=== PATIENT | female | born 1985 | race Caucasian/White ===

== ENCOUNTER → 2023-01-14 | Outpatient (CLI) | payer OTHER ==
--- NOTE | 2023-01-14 12:05 | XR ---
EXAMINATION TYPE: XR hand complete RT, XR wrist complete RT DATE OF EXAM: 01/14/2023 12:01 PM INDICATION: Patient age:Female; 37 years old; Reason for study: S63.601A S63.501A; [facility]. COMPARISON: None TECHNIQUE: Frontal, lateral and oblique views of the right hand were obtained. Frontal, lateral and o blique views of the right wrist were obtained. FINDINGS: Normal alignment of the visualized joints. No osseous erosions. No acute osseous pathology is identified. No evidence of soft tissue swelling. No radiopaque foreign bodies. IMPRESSION: No acute osseous pathology.
== END | disposition home or self-care (01) ==
LOC: RADXRMAIN 11:42
PROVIDERS: ATTEND Emergency Medicine
DX: S63.601A Unspecified sprain of right thumb, initial encounter (principal); S63.501A Unspecified sprain of right wrist, initial encounter; X58.XXXA Exposure to other specified factors, initial encounter

== ENCOUNTER → 2023-01-29 | Outpatient (CLI) | payer OTHER ==
--- NOTE | 2023-01-29 14:30 | XR ---
EXAMINATION TYPE: XR hand complete RT DATE OF EXAM: 01/29/2023 COMPARISON: NONE HISTORY: 61-year-old female for stroke right hand, injury. S63.601H TECHNIQUE: 3 views FINDINGS: No acute fracture, subluxation, or dislocation. IMPRESSION: No acute osseous abnormality seen.
== END | disposition home or self-care (01) ==
LOC: RADXRMAIN 13:49
PROVIDERS: ATTEND Emergency Medicine
DX: S63.601D Unspecified sprain of right thumb, subsequent encounter (principal); X58.XXXD Exposure to other specified factors, subsequent encounter